=== PATIENT | female | born 1995 | race Two or more races ===

== ENCOUNTER 2021-07-19 12:01 | Emergency (ER) | payer OTHER ==
[~2021-07-19] VITALS: Ht 157.5 cm; Wt 54.4 kg
[2021-07-19 12:01] VITALS: BP 127/81
--- NOTE | 2021-07-19 12:05 | NUR ---
[facility] 839 for OTB. Patient has no complaint per EMS report. Dr Mullen at for eval. Patient refused to talk. Unable to obtain Hx.
== END 2021-07-19 12:17 ==
LOC: ER 12:03
DX: Z02.89 Encounter for other administrative examinations (principal)